=== PATIENT | female | born 1955 | race Caucasian/White ===

== ENCOUNTER → 2017-04-06 | Outpatient (CLI) | payer BC ==
[2017-04-06 09:04] LABS: ALT 34 U/L (9-52); AST 22 U/L (14-36); Alkaline Phosphatase 62 U/L (38-126); Anion Gap 10 mmol/L; Blood Urea Nitrogen 20 mg/dL (7-17); Calcium 9.1 mg/dL (8.4-10.2); Carbon Dioxide 27 mmol/L (22-30); Chloride 106 mmol/L (98-107); Cholesterol 161 mg/dL (<200); Glucose 88 mg/dL (74-99); HDL Cholesterol 51 mg/dL (40-60); Non-African American GFR(MDRD) >60 (>60 ml/min/1.73 sqM); Potassium 3.8 mmol/L (3.5-5.1); Sodium 143 mmol/L (137-145); Total Bilirubin 0.6 mg/dL (0.2-1.3); Total Protein 6.8 g/dL (6.3-8.2); Triglycerides 154 mg/dL (<150)
== END | disposition home or self-care (01) ==
LOC: LABWHC1 07:07
PROVIDERS: ATTEND Internal Medicine Clinical Cardiac Electrophysiology
DX: E78.5 Hyperlipidemia, unspecified (principal)
CPT/HCPCS: 36415; 80053; 80061

== ENCOUNTER → 2017-09-03 | Outpatient (CLI) | payer BC ==
--- NOTE | 2017-09-03 09:54 | WWHP ---
[facility] - HISTORY AND PHYSICAL DATE OF SERVICE: 09/03/2017 CHIEF COMPLAINT: The patient is here for her routine gynecologic exam and mammogram. HPI: This is a 61-year-old G2, P2, with an LMP of 2008. It has been about 4-1/2 years since her last pelvic exam and mammogram. She states she has occasional hot flashes, which are not very bothersome. She is without gynecologic complaints and denies any postmenopausal bleeding. PAST MEDICAL HISTORY: Elevated cholesterol and anxiety. MEDICATIONS: 1. Zocor 20 mg daily. 2. Zoloft 150 mg q.h.s. 3. Aspirin 81 mg daily. 4. Calcium with vitamin D3, 600 mg b.i.d. ALLERGIES: Allergies to PENICILLIN, which caused a rash. PAST SURGICAL HISTORY: Adenoidectomy as a child, left arthroscopic knee surgery and tubal ligation in the past, colonoscopy x2 and the most recent one was in 2013. PAST OB HISTORY: Two vaginal deliveries. PAST BUILDING CUSTODIAL SUPERVISOR HISTORY: She has no history of STDs. SOCIAL HISTORY: She denies tobacco and drug use and has about one alcohol containing drink per year. She has been since 1974, but is not sexually active. She states her is an alcoholic. 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 FAMILY HISTORY: Sister had ovarian cancer in her 70s. Another sister had tonsil cancer. She had an aunt and uncle who had colon cancer and a niece who had breast cancer. Her father had type 1 diabetes. Sister had type 2 diabetes and a nephew has type 1 diabetes. REVIEW OF SYSTEMS: She believes she has gained about 8 pounds over the last year. She denies respiratory, cardiac or GI problems. PHYSICAL EXAM: Blood pressure 130/77, height 5 feet 3 inches, weight 168 pounds, BMI 30, temperature 98.2, pulse 85. This is a well-developed, well-nourished, white female, who is alert and oriented x3, in no acute distress. HEENT is within normal limits. NECK: Supple without mass or thyromegaly. CHEST AND LUNGS: Clear to auscultation. HEART: Regular rate and rhythm. Breasts are without mass or discharge. There is a very small central nipple inversion. The patient states she has not noticed any changes. Axillary exam is negative for adenopathy. BACK: Negative for CVA tenderness. ABDOMEN: Soft, nontender, without palpable masses. PELVIC EXAM: External genitalia reveals mild atrophy without lesions. Cervix and vagina reveals mild atrophy without lesions. There is no significant prolapse noted. The uterus is posterior, nongravid size and nontender. There are no palpable adnexal masses or tenderness. Rectovaginal exam is negative for mass or tenderness and is negative for occult blood. EXTREMITIES: Nontender. IMPRESSION: A 61-year-old menopausal female with normal gynecologic exam. PLAN: 1. Pap smear was performed. 2. Self breast examination was discussed. 3. Mammogram will be done today. 4. Osteoporosis prevention was discussed. She will also be doing a bone density test today. 5. She will return in 1 year. MMODL / IJN: [id number] /
--- NOTE | 2017-09-03 16:43 | BD ---
EXAMINATION TYPE: MG DEXA axial skeleton. DATE OF EXAM: 09/03/2017 COMPARISON: NONE CLINICAL HISTORY: 61-year-old female postmenopausal without HRT Height: 63 Weight: 166.2 FRAX RISK QUESTIONS: Alcohol (3 or more units per day): no Family History (Parent hip fracture): no Glucocorticoids (More than 3mos): no (Ex: prednisone, prednisolone, methylprednisolone, dexamethasone, and hydrocortisone). History of Fracture in Adulthood: no Secondary Osteoporosis: 1. Type 1 Diabetes: no 2. Hyperthyroidism: no 3. Menopause before 45: no 4. Malnutrition: no 5. Chronic liver disease: no Rheumatoid Arthritis: no Current Tobacco Use: no RISK FACTORS HISTORY OF: Hip Fracture (Right/Left): no Spine Fracture: no History of Wrist Fracture: no Surgery to Spine/Hip(right/left)/Wrist (right/left): no Family History of Osteoporosis: yes Active: yes Diet low in dairy products/other sources of calcium: no Postmenopausal woman: age 53 Lost more than 2 inches in height since high school: no Frequent falls: no Poor Health: no Hyperparathyroidism: no Adrenal Insufficiency: no MEDICATIONS: Zocor , zoloft Additional History: EXAM MEASUREMENTS: Bone mineral densitometry was performed using the [employer] System. Bone mineral density as measured about the Lumbar spine is: ----- L1-L4(G/cm2): 1.497 T Score Values are as follows: ----- L2: 0.7 ----- L3: 3.1 ----- L4: 4.5 ----- L1-L4: 2.6 Bone mineral density has: increased 1.3 % since Bone mineral density about the R hip (g/cm2): 1.004 Bone mineral density about the L hip (g/cm2): 1.002 T Score values are as follows: -----R Neck: -0.2 -----L Neck: -0.3 -----R Total: 0.0 -----L Total: 0.5 Bone mineral density has: decreased -0.8 % since study of01.19.2015 IMPRESSION: Normal (Values between +1 and -1 indicate normal bone mass). Consider repeating this study in 5 year s or sooner if there is some new clinical indication. NOTE: T-SCORE=SD OF THE YOUNG ADULT MEAN.
--- NOTE | 2017-09-04 10:53 | MM ---
Reason for exam: screening (asymptomatic). Last mammogram was performed 2 years ago. History: Patient is postmenopausal. Physical Findings: A clinical breast exam by your physician is recommended on an annual basis and results should be correlated with mammographic findings. MG Screening Mammo w CAD Bilateral CC and MLO view(s) were taken. Prior study comparison: August 23, 2015, bilateral MG screening mammo w CAD. June 25, 2014, bilateral MG screening mammo w CAD. No significant changes when compared with prior studies. ASSESSMENT: Benign, BI-RAD 2 RECOMMENDATION: Routine screening mammogram of both breasts in 1 year.
== END | disposition home or self-care (01) ==
LOC: WWCWWP 08:30
PROVIDERS: ATTEND Obstetrics & Gynecology
DX: Z12.31 Encounter for screening mammogram for malignant neoplasm of breast (principal); N95.9 Unspecified menopausal and perimenopausal disorder
CPT/HCPCS: 77080; G0202

== ENCOUNTER 2018-01-04 15:49 | Observation (INO) | payer BC ==
--- NOTE | 2018-01-04 16:17 | ED ---
Chest Pain HPI <Juancho West - Last Filed: 01/04/18 17:10> - General Source: patient Mode of arrival: EMS Limitations: no limitations <Thania Can - Last Filed: 01/04/18 17:25> - General Chief Complaint: Chest Pain Stated Complaint: Rapid heart rate Time Seen by Provider: 01/04/18 16:01 - History of Present Illness Initial Comments: 62-year-old female patient with a past medical history significant for hyperlipidemia and anxiety presents to the emergency department today for complaints of racing heart and chest tightness. Patient states that she had 2 separate episodes today where she became short of breath, felt tightness in her substernal chest region, and had palpitations. Patient denies any sweats or nausea with this. Patient states that she has had racing heart in the past and was diagnosed with irregular heartbeat. States that she does not currently take any medications for this and never had any intervention. Patient states that she did recently take a 3-4 [address] trip to [place] and hospital for special care. She denies any calf pain or tenderness. She denies any lower extremity swelling. Patient is also reporting dark urine but denies any hematuria, dysuria, urinary frequency, or urinary urgency. Denies any abdominal pain, nausea, or vomiting. Patient denies any recent rash, fever, chills, diarrhea, constipation, back pain, numbness, tingling, dizziness, weakness, hematuria, dysuria, urinary urgency, urinary frequency, headache, visual changes, or any other complaints. (Thania Can) - Related Data Home Medications Medication Instructions Recorded Confirmed Aspirin 81 mg PO HS 01/04/18 01/04/18 Calcium Carbonate/Vitamin D3 1 tab PO DAILY 01/04/18 01/04/18 [Calcium 600-Vit D3 400 Caplet] Cyanocobalamin (Vitamin B-12) 1,000 mcg PO DAILY 01/04/18 01/04/18 [Vitamin B-12] Glucosamine/Chondr Francisco A Sod [Osteo 1 tab PO BID 01/04/18 01/04/18 Bi-Flex Caplet] Sertraline [Zoloft] 150 mg PO HS 01/04/18 01/04/18 Simvastatin [Zocor] 20 mg PO HS 01/04/18 01/04/18 Allergies Allergy/AdvReac Type Severity Reaction Status Date / Time Penicillins Allergy Rash/Hives Verified 01/04/18 16:40 Review of Systems ROS Other: All systems not noted in ROS Statement are negative. <Juancho West - Last Filed: 01/04/18 17:10> ROS Other: All systems not noted in ROS Statement are negative. <Thania Can - Last Filed: 01/04/18 17:25> ROS Statement: Those systems with pertinent positive or pertinent negative responses have been documented in the HPI. EKG Findings - EKG Comments: EKG Findings:: EKG obtained at 1601 shows sinus rhythm with occasional PVCs. Ventricular rate is 85, DE interval 178, QR cheondoism 92, QT 378, QTC 449. No evidence of ST elevation or depression. <Thania Can - Last Filed: 01/04/18 17:25> Past Medical History Past Medical History: Hyperlipidemia History of Any Multi-Drug Resistant Organisms: None Reported Past Surgical History: Adenoidectomy Past Psychological History: Anxiety Smoking Status: Former smoker Past Alcohol Use History: None Reported Past Drug Use History: None Reported <Thania Can - Last Filed: 01/04/18 17:25> General Exam Limitations: no limitations General appearance: alert, in no apparent distress, other (This is a well- developed, well-nourished adult female patient in no acute distress. Vital signs upon presentation are temperature 98.0F, pulse 92, respirations 16, blood pressure 147/77, pulse ox 98% on room air.) Eye exam: Present: normal appearance, PERRL, EOMI. Absent: scleral icterus, conjunctival injection, periorbital swelling ENT exam: Present: normal exam, normal oropharynx, mucous membranes moist Respiratory exam: Present: normal lung sounds bilaterally. Absent: respiratory distress, wheezes, rales, rhonchi, stridor, chest wall tenderness Cardiovascular Exam: Present: regular rate, normal rhythm, normal heart sounds. Absent: systolic murmur, diastolic murmur, rubs, gallop, clicks GI/Abdominal exam: Present: soft, normal bowel sounds. Absent: distended, tenderness, guarding, rebound, rigid Neurological exam: Present: alert, oriented X3, CN II-XII intact Psychiatric exam: Present: normal affect, normal mood Skin exam: Present: warm, dry, intact, normal color. Absent: rash <Thania Can - Last Filed: 01/04/18 17:25> Course <Juancho West - Last Filed: 01/04/18 17:10> <Thania Can - Last Filed: 01/04/18 17:25> Vital Signs 01/04/18 01/04/18 01/04/18 15:55 16:12 17:04 Temperature 98.0 F Pulse Rate 92 75 Pulse Rate [ 89 Career Services Representative ] Respiratory 16 18 Rate Blood Pressure 147/77 139/75 O2 Sat by Pulse 98 98 Oximetry - Reevaluation(s) Reevaluation #1: 01/04/18 17:10 I did proceed a [id number] evaluation patient did discuss findings with patient patient will be admitted for evaluation of atypical chest pain. Dr. Abraham was notified. I do agree with the assessment and plan. (Juancho West) Chest Pain MDM <Juancho West - Last Filed: 01/04/18 17:10> <Thania Can - Last Filed: 01/04/18 17:25> - [facility]: Two-view x-ray of the chest shows no focal airspace opacity, pleural effusion, or pneumothorax. There are overlying cardiac leads. Patient is rotated. The cardiac silhouette size is within normal limits. The osseous structures are intact. Impression by Dr. Leo shows no acute cardiopulmonary process. MDM: 62-year-old female patient presented to the emergency department today for complaints of chest tightness and palpitations. Physical examination is unremarkable. Currently heart sounds are normal. EKG shows normal sinus rhythm with occasional PVCs. Labs reviewed and were unremarkable. Did add TSH. Did discuss the case with Dr. Abraham. He accepts admission. We will start patient on heparin. We'll continue cardiac monitoring. I discussed findings and plan with the patient and her family. They verbalize understanding and agree with the plan. (Thania Can) Disposition <Juancho West - Last Filed: 01/04/18 17:10> Decision to Admit Reason: Admit from EC Decision Date: 01/04/18 Decision Time: 17:22 <Thania Can - Last Filed: 01/04/18 17:25> Clinical Impression: Atypical chest pain, Palpitations Disposition: ADMITTED IP TO THIS [facility] Condition: Serious Referrals: Mayank Walden MD [Primary Care Provider] - 1-2 days
[2018-01-04 16:25] LABS: Basophils % (A) 0 %; Eosinophils # (A) 0.1 k/uL (0-0.7); Eosinophils % (A) 2 %; HCT 40.6 % (34.0-46.0); HGB 14.4 gm/dL (11.4-16.0); Lymphocytes % (A) 30 %; MCH 30.8 pg (25.0-35.0); MCHC 35.6 g/dL (31.0-37.0); MCV 86.7 fL (80.0-100.0); Mean Platelet Volume 6.8; Monocytes # (A) 0.3 k/uL (0-1.0); Monocytes % (A) 5 %; Neutrophils # (A) 4.2 k/uL (1.3-7.7); Neutrophils % (A) 61 %; Platelet Count 266 k/uL (150-450); RBC 4.68 m/uL (3.80-5.40); WBC 6.9 k/uL (3.8-10.6)
[2018-01-04 16:32] LABS: Appearance,Urine Clear (Clear); Bilirubin,Urine Negative (Negative); Blood,Urine Negative (Negative); Color,Urine Yellow; Glucose,Urine (UA) Negative (Negative); Ketones,Urine Trace (Negative); Leukocyte Esterase,Urine Negative (Negative); Nitrite,Urine Negative (Negative); PH, Urine 6.5 (5.0-8.0); Protein,Urine Negative (Negative); Specific Gravity,Urine 1.007 (1.001-1.035); Urobilinogen,Urine <2.0 mg/dL (<2.0)
[2018-01-04 16:35] LABS: ALT 30 U/L (9-52); AST 21 U/L (14-36); Albumin 4.1 g/dL (3.5-5.0); Alkaline Phosphatase 76 U/L (38-126); Anion Gap 13 mmol/L; Blood Urea Nitrogen 15 mg/dL (7-17); Calcium 9.7 mg/dL (8.4-10.2); Carbon Dioxide 23 mmol/L (22-30); Chloride 108 mmol/L (98-107); D-Dimer 0.3 mg/L FEU (<0.60); Glucose 99 mg/dL (74-99); Magnesium 1.9 mg/dL (1.6-2.3); Potassium 3.9 mmol/L (3.5-5.1); Sodium 144 mmol/L (137-145); Total Bilirubin 0.4 mg/dL (0.2-1.3); Total Protein 7.1 g/dL (6.3-8.2)
[2018-01-04 16:39] LABS: Partial Thromboplastin Time 23.2 sec (22.0-30.0); Prothrombin Time 9.8 sec (9.0-12.0)
[2018-01-04 16:47] LABS: Creatine Kinase 81 U/L (30-135)
--- NOTE | 2018-01-04 16:47 | XR ---
EXAMINATION TYPE: XR chest 2V DATE OF EXAM: 01/04/2018 COMPARISON: NONE HISTORY: Chest pain TECHNIQUE: Frontal and lateral views of the chest are obtained. FINDINGS: There is no focal air space opacity, pleural effusion, or pneumothorax seen. There are ov erlying cardiac leads. Patient is rotated. The cardiac silhouette size is within normal limits. The osseous structures are intact. IMPRESSION: No acute cardiopulmonary process.
[2018-01-04 17:00] LABS: Troponin I <0.012 ng/mL (0.000-0.034)
[2018-01-04] MEDS ORDERED: NITROGLYCERIN SL TABS 0.4 MG TAB SUBLINGUAL PRN (17:18)
[2018-01-04] MEDS ORDERED: HEPARIN SODIUM,PORCINE 5,000 UNIT/ML 1 ML VIAL IV PRN (17:21)
[2018-01-04] MEDS ORDERED: HEPARIN SODIUM,PORCINE 5,000 UNIT/ML 1 ML VIAL IV ONE (17:21)
[2018-01-04] MEDS ORDERED: HEPARIN SOD,PORK IN 0.45% NACL 25,000 UNIT in 0.45% NACL 1 500ML.BAG IV SCH (17:30)
[2018-01-04] MEDS ORDERED: SODIUM CHLORIDE 0.9% 1,000 ML IV SCH (18:15)
[2018-01-04] MEDS ORDERED: ACETAMINOPHEN TAB 325 MG TAB PO PRN (21:18)
[2018-01-04 21:29] VITALS: BMI 29.7
[2018-01-04] MEDS ORDERED: SERTRALINE 100 MG TAB PO SCH (23:30)
[2018-01-04] MEDS ORDERED: ATORVASTATIN 20 MG TAB PO SCH (23:30)
[2018-01-05 00:07] LABS: Creatine Kinase 72 U/L (30-135)
[2018-01-05 00:19] LABS: Creatine Kinase MB 1.1 ng/mL (0.0-2.4); Troponin I <0.012 ng/mL (0.000-0.034)
[2018-01-05 06:04] LABS: Basophils % (A) 1 %; Eosinophils # (A) 0.3 k/uL (0-0.7); Eosinophils % (A) 4 %; HCT 38.3 % (34.0-46.0); HGB 13.3 gm/dL (11.4-16.0); Lymphocytes % (A) 41 %; MCH 30.1 pg (25.0-35.0); MCHC 34.6 g/dL (31.0-37.0); MCV 86.9 fL (80.0-100.0); Monocytes # (A) 0.4 k/uL (0-1.0); Monocytes % (A) 5 %; Neutrophils # (A) 3.4 k/uL (1.3-7.7); Neutrophils % (A) 46 %; Platelet Count 243 k/uL (150-450); RBC 4.41 m/uL (3.80-5.40); RDW 13.2 % (11.5-15.5); WBC 7.3 k/uL (3.8-10.6)
[2018-01-05 06:32] LABS: Creatine Kinase 68 U/L (30-135)
[2018-01-05 06:44] LABS: Troponin I <0.012 ng/mL (0.000-0.034)
[2018-01-05 06:47] LABS: Cholesterol 152 mg/dL (<200); HDL Cholesterol 51 mg/dL (40-60); LDL Cholesterol,Calculated 79 mg/dL (0-99); Triglycerides 110 mg/dL (<150)
[2018-01-05] MEDS ORDERED: ASPIRIN 325 MG TAB PO SCH (09:00)
[2018-01-05] MEDS ORDERED: CYANOCOBALAMIN 500 MCG TAB PO SCH (09:00)
[2018-01-05] MEDS ORDERED: CALCIUM CARB-VIT D 500MG-200UN 1 EACH TAB PO SCH (09:00)
[2018-01-05 12:27] VITALS: BP 154/71; PULSE 75; RESP 16; TEMP 97.7
--- NOTE | 2018-01-05 13:07 | CONS ---
CONSULTATION CHIEF COMPLAINT: Chest pain. HISTORY OF PRESENT ILLNESS: Lázaro is 62-year-old lady with history of palpitations for which she used to be on propranolol in the past and dyslipidemia, presented to hospital complaining of recurrent episodes of palpitations and a vague sense of unease in her chest when this happens. Due to this, she is admitted to hospital with a diagnosis of unstable angina. Since being admitted home, she is feeling well and is free of symptoms. She denies syncope, focal neurological deficits, paroxysmal nocturnal dyspnea or orthopnea. There is no history of leg edema. The EKG does not reveal ischemic changes and cardiac enzymes have been negative. PAST MEDICAL HISTORY: Significant for dyslipidemia. CURRENT MEDICATIONS: Include Zoloft, Zocor, vitamin B12, and aspirin. ALLERGIES: ALLERGIC TO PENICILLIN. FAMILY HISTORY: Significant for premature coronary artery disease. SOCIAL HISTORY: Negative for smoking, ETOH abuse or drug abuse. REVIEW OF SYSTEMS: HEENT is unremarkable. Cardiac as described above. Respiratory negative. GI negative. Genitourinary negative. Allergy none. Skin negative. Musculoskeletal significant for arthritis. Psychosocial negative. Endocrine negative. Derm negative. Constitutional negative. Oncological negative. Rest of the system review is not relevant. EXAM: Comfortable at rest. Vital signs are stable. There is no jugular venous distention. Carotid upstroke is normal. There is no bruit. Chest exam reveals good air entry bilaterally. Heart exam reveals first and second heart sounds. No gallop. No murmur. No rub. Abdomen is soft, nontender. Exam of extremities did not reveal edema. Peripheral pulses are felt. EKG does not reveal ischemic changes. Cardiac enzymes are negative. D-dimer is 0.3. Hemoglobin is 13.3. ASSESSMENT: 1. Chest pain, atypical and probably noncardiac. 2. Palpitations. PLAN: Patient is doing better this morning. Myocardial infarction is ruled out. I will ambulate her. If she is feeling well, she can be discharged home on Toprol-XL 25 mg daily and she will be followed up in the outpatient setting. She sees Dr. Pierre in my office. We can schedule an outpatient stress test and echocardiogram on her. MMODL / IJN: [id number] /
[2018-01-05] MEDS ORDERED: METOPROLOL SUCCINATE (ER) 25 MG TAB.ER.24H PO STA (15:21)
--- NOTE | 2018-01-05 18:55 | HP ---
HISTORY AND PHYSICAL DATE OF ADMISSION: 01/04/18. PRESENT COMPLAINT: Chest pressure, heart racing. HISTORY OF PRESENTING COMPLAINT: A very pleasant 62-year-old patient of Dr. Walden. Also follows with poly packer and heat sealer, Dr. Pierre. Chronic stable medical conditions include anxiety, depression, and hyperlipidemia. The patient presents with multitude of symptoms to include sensation of bit of pressure across the chest, going to both the arms and feeling numbness and tingling. Some episodes of associated dizziness of variable duration. The patient had slight symptoms on and off for some time she said before. The patient went on to starting Zoloft, symptoms are gone. Symptoms came back very recently in the last few days, but more so in the last 2 days, especially 2 episodes yesterday a bit more protracted, hence, she decided to come in. Otherwise, patient is rather active. Denies any prior cardiac activity. Here on the telemetry she did have brief episode of sinus tach. Denies any episodes of passing out or near syncope. REVIEW OF SYSTEM: CONSTITUTIONAL: None. HEENT: None. RESPIRATORY: None. CARDIOVASCULAR: As above. GASTROINTESTINAL: Denied. GENITOURINARY: None. MUSCULOSKELETAL: None. DERMATOLOGIC, HEMATOLOGIC, LYMPHATIC: None. PSYCHIATRY: Bit of anxiety. NEUROLOGICAL: None. PAST HISTORY: Past history of hyperlipidemia, anxiety, depression. PAST SURGICAL HISTORY: Adenoidectomy, tubal ligation. 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 No alcohol. FAMILY HISTORY: Hypertension. HOME MEDICATIONS: 1. Zocor 20 mg q.h.s. 2. Zoloft 150 mg q.h.s. 3. Osteo Bi-Flex 1 tab p.o. b.i.d. 4. Vitamin B12 1000 mcg p.o. daily. 5. Calcium with vitamin D 1 tablet p.o. daily. 6. Aspirin 81 mg q.h.s. ALLERGIES: PENICILLIN. PHYSICAL EXAMINATION: Temperature 97.7, pulse 75, respirations 18, blood pressure 154/71, pulse ox 95% on room air. GENERAL APPEARANCE: Average built, sitting up, comfortable. EYES: Pupils equal. Conjunctivae normal. HEENT: External appearance of nose and ears normal. Oral cavity normal. NECK: JVD not raised. Mass not palpable. RESPIRATORY: Effort normal, lungs are clear. CARDIOVASCULAR: First and second sounds normal. No edema. ABDOMEN: Soft, nontender. Liver and spleen not palpable. LYMPHATIC: No lymph node palpable in neck or axillae. PSYCHIATRY: Alert and oriented x3. Mood and affect normal. NEUROLOGICAL: Pupils equal. Cranial nerves grossly intact. Power and sensation grossly intact. INVESTIGATIONS: White count 7.3, hemoglobin 13.3, potassium 3.9, troponin x3 negative. TSH normal. ASSESSMENT: 1. The patient presented with episodes of some chest pressure radiating to the arm, some heart racing, feeling flushed, dizzy, could be angina equivalent. Admitted further workup. Troponins have been negative. 2. Anxiety/depression, not otherwise specified. 3. Hyperlipidemia. PLAN: The patient is put on telemetry. Cardiology was consulted. Home medications were resumed. Care was discussed with the patient. ROGELIO / BRYON: [id number] /
[2018-01-05] MEDS ORDERED: ATORVASTATIN 10 MG TAB PO SCH (21:00)
[2018-01-05] MEDS ORDERED: SERTRALINE 50 MG TAB PO SCH (21:00)
--- NOTE | 2018-01-06 05:52 | DS ---
DISCHARGE SUMMARY DATE OF ADMISSION: 01/04/2018 DATE OF DISCHARGE: 01/05/2018 FINAL DIAGNOSES: 1. Paroxysmal sinus tachycardia. 2. Anxiety, depression, not otherwise specified. 3. Hyperlipidemia. HOSPITAL COURSE: This patient presented with episodes of fluttering in the chest. Seen by Dr. Surekha Lee. Okayed the patient to be discharged. He will do an outpatient stress test. The patient is otherwise feeling well. The patient's troponins were negative. TSH was normal. LDL was 79. DISCHARGE MEDICATIONS: 1. Aspirin 81 mg q.h.s. 2. Calcium 600, vitamin D3 one tablet p.o. daily. 3. Vitamin B-12, 1000 mcg p.o. daily. 4. Osteo Bi-Flex 1 tablet p.o. b.i.d. 5. Zoloft 150 mg q.h.s. 6. Zocor 20 mg q.h.s. 7. Toprol XL 25 mg a day, new medication. Follow up with Dr. Pierre in [address] Walden in 3 days. MMODL / IJN: [id number] /
== END 2018-01-05 17:11 | disposition home or self-care (01) ==
LOC: EC 15:49 → 3SUR 17:11
PROVIDERS: ADMIT Hospitalist; ATTEND Hospitalist
DX: I47.1 Supraventricular tachycardia (principal); R07.2 Precordial pain; R20.0 Anesthesia of skin; R20.2 Paresthesia of skin; E78.5 Hyperlipidemia, unspecified; F41.9 Anxiety disorder, unspecified; F32.9 Major depressive disorder, single episode, unspecified; Z79.82 Long term (current) use of aspirin; Z79.899 Other long term (current) drug therapy; Z88.0 Allergy status to penicillin; Z87.891 Personal history of nicotine dependence; Z82.49 Family history of ischemic heart disease and other diseases of the circulatory system
CPT/HCPCS: 99285; 96376; 96365; 96366 ×2; 36415; 93005; 85379; 80061; 80053; 84443; 82550 ×2; 82553 ×2; 83735; 84484 ×2; 85025 ×2; 85610; 85730 ×2; 81003; 71046; G0378 ×2; J1644 ×2

== ENCOUNTER → 2018-06-21 | Outpatient (CLI) | payer BC ==
[2018-06-21 08:33] LABS: Basophils % (A) 1 %; Eosinophils # (A) 0.3 k/uL (0-0.7); Eosinophils % (A) 5 %; HCT 44.2 % (34.0-46.0); HGB 14.3 gm/dL (11.4-16.0); Lymphocytes # (A) 1.9 k/uL (1.0-4.8); Lymphocytes % (A) 36 %; MCH 29.7 pg (25.0-35.0); MCHC 32.2 g/dL (31.0-37.0); MCV 92.2 fL (80.0-100.0); Mean Platelet Volume 6.8; Monocytes # (A) 0.3 k/uL (0-1.0); Monocytes % (A) 6 %; Neutrophils # (A) 2.7 k/uL (1.3-7.7); Neutrophils % (A) 51 %; Platelet Count 251 k/uL (150-450); RDW 12.9 % (11.5-15.5); WBC 5.3 k/uL (3.8-10.6)
[2018-06-21 08:39] LABS: ALT 30 U/L (9-52); AST 24 U/L (14-36); Albumin 4.2 g/dL (3.5-5.0); Alkaline Phosphatase 65 U/L (38-126); Anion Gap 7 mmol/L; Blood Urea Nitrogen 20 mg/dL (7-17); Calcium 9.6 mg/dL (8.4-10.2); Carbon Dioxide 29 mmol/L (22-30); Chloride 106 mmol/L (98-107); Cholesterol 172 mg/dL (<200); Creatine Kinase 100 U/L (30-135); Glucose 87 mg/dL (74-99); HDL Cholesterol 52 mg/dL (40-60); LDL Cholesterol,Calculated 90 mg/dL (0-99); Potassium 4.1 mmol/L (3.5-5.1); Sodium 142 mmol/L (137-145); Total Bilirubin 0.6 mg/dL (0.2-1.3); Total Protein 7.2 g/dL (6.3-8.2); Triglycerides 149 mg/dL (<150)
[2018-06-21 18:36] LABS: Hemoglobin A1C 5.7 % (4.0-6.0)
== END | disposition home or self-care (01) ==
LOC: LABWHC1 08:01
PROVIDERS: ATTEND Family Medicine
DX: Z00.00 Encounter for general adult medical examination without abnormal findings (principal); E78.5 Hyperlipidemia, unspecified; Z11.59 Encounter for screening for other viral diseases
CPT/HCPCS: 36415; 80053; 80061; 82550; 83036; 85025; 86803

== ENCOUNTER → 2019-04-23 | Outpatient (CLI) | payer BC ==
--- NOTE | 2019-04-23 09:17 | US ---
EXAMINATION TYPE: US transvaginal DATE OF EXAM: 04/23/2019 COMPARISON: NONE CLINICAL HISTORY: R10.2 pelvic pain. 6 months of general pelvic pain TECHNIQUE: TV. Transvaginal sonography Date of LMP: 12+yrs ago EXAM MEASUREMENTS: Uterus: 5.8 x 4.6 x 2.5 cm Endometrial Stripe: 0.3 cm Right Ovary: 1.7 x 1.6 x 0.8 cm Left Ovary: not seen 1. Uterus: Anteverted slightly heterogeneous anterior myometrium with no definite abnormality seen 2. Endometrium: wnl 3. Right Ovary: wnl 4. Left Ovary: not seen due to atrophy and bowel gas 5. Bilateral Adnexa: wnl 6. Posterior cul-de-sac: wnl IMPRESSION: 1. Slight heterogeneity of the uterine myometrium could relate to adenomyosis. Pelvic MRI could furth er evaluate this finding. 2. Nonvisualization of the left ovary.
--- NOTE | 2019-04-24 10:01 | MM ---
Reason for exam: screening (asymptomatic). Last mammogram was performed 1 year and 8 months ago. History: Patient is postmenopausal. Physical Findings: A clinical breast exam by your physician is recommended on an annual basis and results should be correlated with mammographic findings. MG Screening Mammo w CAD Bilateral CC and MLO view(s) were taken. Prior study comparison: September 03, 2017, bilateral MG screening mammo w CAD. August 23, 2015, bilateral MG screening mammo w CAD. There are scattered fibroglandular densities. There is no discrete abnormality. ASSESSMENT: Negative, BI-RAD 1 RECOMMENDATION: Routine screening mammogram of both breasts in 1 year.
== END | disposition home or self-care (01) ==
LOC: RADUSWWP 08:04
PROVIDERS: ATTEND Nurse Practitioner Adult Health
DX: Z12.31 Encounter for screening mammogram for malignant neoplasm of breast (principal); N85.2 Hypertrophy of uterus
CPT/HCPCS: 36415; 76830; 77067; 86304

== ENCOUNTER → 2019-05-14 | Outpatient (CLI) | payer BC ==
--- NOTE | 2019-05-15 16:58 | MR ---
MR pelvis with and without contrast HISTORY: Endometrial hyperplasia, pelvic discomfort Multiplanar multisequence and postcontrast images obtained through the pelvis following 7.[address] IV. Correlation pelvic ultrasound 04/23/2019 Nabothian cyst is noted in the cervix. Ovaries are atrophic. No evident myometrial mass. There is no pelvic adenopathy or free fluid. Transitional zone is normal. No evident adenomyosis. No abnormal enh ancement on contrast administration. IMPRESSION: Normal pelvic MRI.
== END | disposition home or self-care (01) ==
LOC: RADMRIMAIN 08:39
PROVIDERS: ATTEND Family Medicine
DX: N85.00 Endometrial hyperplasia, unspecified (principal)
CPT/HCPCS: 72197; A9585

== ENCOUNTER → 2020-09-22 | Outpatient (CLI) | payer BC ==
--- NOTE | 2020-09-26 11:08 | MM ---
Reason for exam: screening (asymptomatic). Last mammogram was performed 1 year and 5 months ago. History: Patient is postmenopausal. Physical Findings: A clinical breast exam by your physician is recommended on an annual basis and results should be correlated with mammographic findings. MG Screening Mammo w CAD Bilateral CC and MLO view(s) were taken. Prior study comparison: April 23, 2019, bilateral MG screening mammo w CAD. September 03, 2017, bilateral MG screening mammo w CAD. There are scattered fibroglandular densities. No significant changes when compared with prior studies. ASSESSMENT: Benign, BI-RAD 2 RECOMMENDATION: Routine screening mammogram of both breasts in 1 year.
== END | disposition home or self-care (01) ==
LOC: RADMAMWWP 09:26
PROVIDERS: ATTEND Family Medicine
DX: Z12.31 Encounter for screening mammogram for malignant neoplasm of breast (principal)
CPT/HCPCS: 77067

== ENCOUNTER → 2022-01-23 | Outpatient (CLI) | payer BC ==
--- NOTE | 2022-01-25 10:48 | MM ---
Reason for exam: screening (asymptomatic). Last mammogram was performed 1 year and 4 months ago. History: Patient is postmenopausal. Physical Findings: A clinical breast exam by your physician is recommended on an annual basis and results should be correlated with mammographic findings. MG 3D Screening Mammo W/Cad Bilateral CC and MLO view(s) were taken. Prior study comparison: September 22, 2020, bilateral MG screening mammo w CAD. April 23, 2019, bilateral MG screening mammo w CAD. No significant changes when compared with prior studies. ASSESSMENT: Benign, BI-RAD 2 RECOMMENDATION: Routine screening mammogram of both breasts in 1 year.
== END | disposition home or self-care (01) ==
LOC: RADMAMWWP 16:43
PROVIDERS: ATTEND Family Medicine
DX: Z12.31 Encounter for screening mammogram for malignant neoplasm of breast (principal); Z78.0 Asymptomatic menopausal state
CPT/HCPCS: 77063; 77067

== ENCOUNTER → 2022-04-25 | Outpatient (CLI) | payer BC ==
[2022-04-25 08:55] VITALS: BP 125/73; PULSE 72; RESP 17; TEMP 98.3
--- NOTE | 2022-04-25 14:54 | P.HPOB ---
History of Present Illness H&P Date: 04/25/22 Chief Complaint: The patient is here for her routine gynecologic exam. This is a 66-year-old with an LMP of 2008. The patient is here to reestablish with this office. She was last seen here in 2017. She has not had a pelvic exam since then. She has noticed a bulge at the vaginal opening for just under 1 year. She states that it is and eggs size bulge and is noticed more when she is doing heavy lifting. She does not notice it in the sitting or laying down position. She denies any pain associated with the bulge. She wonders if it is her uterus. She is otherwise without gynecologic complaints and denies any postmenopausal bleeding. Review of Systems The patient's weight has been stable over the last year. She denies respiratory, cardiac, or G.I. problems. Past Medical History Past Medical History: Hyperlipidemia Additional Past Medical History / Comment(s): Intermittent tachycardia. 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 History of Any Multi-Drug Resistant Organisms: None Reported Past Surgical History: Adenoidectomy, Orthopedic Surgery, Tubal Ligation Additional Past Surgical History / Comment(s): Arthroscopic knee surgery. Colonoscopy 2013 Past Anesthesia/Blood Transfusion Reactions: No Reported Reaction Past Psychological History: Anxiety Additional Psychological History / Comment(s): She denies any current depression. 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 - Past Family History Father Family Medical History: Diabetes Mellitus, Hypertension Additional Family Medical History / Comment(s): Paternal aunt and uncle had colon cancer. Mother Family Medical History: Coronary Artery Disease (CAD), Hypertension, Pulmonary Embolus Sister(s) Family Medical History: Cancer Additional Family Medical History / Comment(s): of ovarian cancer in her 70s. Medications and Allergies Home Medications Medication Instructions Recorded Confirmed Type Aspirin 81 mg PO HS 01/04/18 04/25/22 History Calcium Carbonate/Vitamin D3 1 tab PO DAILY 01/04/18 04/25/22 History [Calcium 600-Vit D3 400 Caplet] Cyanocobalamin (Vitamin B-12) 1,000 mcg PO DAILY 01/04/18 04/25/22 History [Vitamin B-12] Sertraline [Zoloft] 150 mg PO HS 01/04/18 04/25/22 History Simvastatin [Zocor] 20 mg PO HS 01/04/18 04/25/22 History Metoprolol Succinate (ER) [Toprol 25 mg PO DAILY #30 tab 01/05/18 04/25/22 Rx Xl] Folic Acid 1 cap PO DAILY 04/25/22 04/25/22 History Turmeric Root Extract [Turmeric] 1,000 mg PO DAILY 04/25/22 04/25/22 History Vitamin A 1 cap PO DAILY 04/25/22 04/25/22 History Allergies Allergy/AdvReac Type Severity Reaction Status Date / Time Penicillins Allergy Rash/Hives Verified 04/25/22 08:49 Exam Vital Signs Temp Pulse Resp BP Pulse Ox 04/25/22 08:52 98.3 F 72 17 125/73 98 Intake and Output 04/24/22 04/25/22 04/25/22 22:59 06:59 14:59 Other: Weight 71.214 kg Height 5 feet 3 inches, weight 157 pounds, BMI 27.8. This is a well-developed well-nourished white female who is alert and oriented times 3 in no acute distress. HEENT: Within normal limits. NECK: Supple without mass or thyromegaly. CHEST AND LUNGS: Clear to auscultation. HEART: Regular rate and rhythm. BREASTS: Are without mass or discharge. There is bilateral central nipple inve rsion noticed more on the right side. The patient states the nipples have been inverted for many years. AXILLARY EXAM: Negative for adenopathy. BACK: Negative for CVA tenderness. ABDOMEN: Soft, nontender, without palpable masses. PELVIC EXAM: Normal external genitalia with mild to moderate atrophy. Cervix and vagina appear normal with mild to moderate atrophy. There is no unusual discharge. There is a grade 2 uterine prolapse with grade 2 cystocele at rest. The cystocele approaches the introitus with hard Valsalva. There is no significant rectocele noted. The uterus is midposition, nongravid size and nontender. There are no palpable adnexal masses or tenderness. RECTAL EXAM: Rectovaginal exam is negative for mass or tenderness and is negative for occult blood. EXTREMITIES: Nontender. IMPRESSION: 1. 66-year-old menopausal female with a grade 2-3 cystocele and grade 2 uterine prolapse. This is mildly symptomatic when doing heavy lifting, and is otherwise minimally symptomatic. 2. Family history of ovarian cancer in her sister. PLAN: 1. Pap smear was performed. She has had negative Pap smears in 2012 and 2016. If this Pap smear is negative, we will plan on discontinuing Pap smears since she has no history of cervical neoplasia. 2. Self breast awareness was discussed with the patient. We have also discussed symptoms associated with inflammatory breast cancer. 3. Her last mammogram on 01/23/2022 was benign. We will plan on repeating mammogram after 1 year. 4. We have had a long discussion regarding pelvic prolapse and have discussed the nature of the cystocele and uterine prolapse. We have discussed various options including conservative management, pessary use, and surgical correction. Since she has noticed the bulge intermittently over the past year and it has been minimally symptomatic, we have decided to proceed with conservative management. She is to avoid heavy repetitive lifting, holding urine longer than necessary, and bearing down. We have discussed negative Valsalva exercises which she can do when she notices a bulge and prior to voiding. The ACOG FAQ handout on pelvic relaxation was given to the patient. 5. Osteoporosis prevention was discussed. I have stressed the importance of adequate calcium, vitamin D and regular exercise. Recommended amounts of calcium and vitamin D were also discussed. Last bone density test on 09/03/2017 was normal. We will plan on repeating it in 2022 at her next annual examination. 6. She has completed her Covid vaccination series and did receive a booster. 7. Because of her sister's history of ovarian cancer, I have recommended yearly pelvic ultrasounds. She did have a pelvic ultrasound on 04/23/2019. A heterogeneous myometrium was noted and MRI of the pelvis was recommended. This was done on 05/14/2019 and was normal. The order slip for a pelvic ultrasound was given to the patient. 8. She was advised to return in one year for her annual well woman exam and as needed.
== END ==
LOC: WWCWWP 08:42
PROVIDERS: ATTEND Obstetrics & Gynecology
DX: Z01.419 Encounter for gynecological examination (general) (routine) without abnormal findings (principal); Z78.0 Asymptomatic menopausal state; N81.4 Uterovaginal prolapse, unspecified; Z80.41 Family history of malignant neoplasm of ovary; E78.5 Hyperlipidemia, unspecified; F41.9 Anxiety disorder, unspecified; F32.A Depression, unspecified; Z88.0 Allergy status to penicillin

== ENCOUNTER → 2023-10-24 | Outpatient (CLI) | payer MEDICARE, BC ==
--- NOTE | 2023-10-24 10:58 | CT ---
EXAMINATION TYPE: CT abdomen pelvis wo con CT DLP: 436.1 mGycm, Automated exposure control for dose reduction was used. DATE OF EXAM: 10/24/2023 9:25 AM COMPARISON: None. CLINICAL INDICATION:Female, 68 years old with history of R10.32 LLQ PAIN; LLQ pain TECHNIQUE: Axial CT of the abdomen and pelvis. Sagittal and coronal reformats were created on a [employer] workstation. Contrast used: mL of , (none if empty) Oral contrast used: without Oral Contrast (none if empty) FINDINGS: Exam is limited without contrast. LOWER CHEST: No significant lung abnormality. Heart is normal in size. There are a moderate amount of coronary arterial calcifications, mostly on the left. Ascending aorta appears ectatic measuring 3.6 cm. Small hiatal hernia. ABDOMEN LIVER: Unremarkable GALLBLADDER AND BILE DUCTS: Unremarkable gallbladder. No biliary ductal dilatation. PANCREAS: No acute finding. Some fat is seen insinuating within the pancreatic body, images 25 and 26 . SPLEEN: Unremarkable. ADRENAL GLANDS: Unremarkable. KIDNEYS AND URETERS: No evidence of renal calculi or contour deformity. No hydronephrosis. Tiny vague hypodense area suggested in the mid left kidney, too small to characterize. Considerations include c yst. PELVIS BLADDER: Unremarkable REPRODUCTIVE: Uterus and adnexal regions appear grossly unremarkable, though not well assessed by CT. Pelvic phleboliths. ABDOMEN & PELVIS STOMACH AND BOWEL: Stomach and small bowel are nondistended, no evidence of obstruction. Thickening versus nondistention of the tissues of the hiatal hernia GE junction and proximal stomach. The append ix appears within normal limits. Fatty infiltration of the ileocecal valve. Moderate to mild stool t hroughout the colon, greatest proximally. There is caliber change at the splenic flexure with the col on distal to this appearing decompressed, this could be physiologic with pathologic narrowing here un able to be excluded. A few sigmoid region diverticula without evidence of diverticulitis. Moderate st ool in the distal sigmoid and rectum. PERITONEUM/RETROPERITONEUM: No evidence of pneumoperitoneum or free fluid. VASCULATURE: Moderate atherosclerotic calcifications are present throughout the abdominal aorta and i ts branches. No evidence of aortic aneurysm. LYMPH NODES: No gross evidence for lymphadenopathy. SOFT TISSUE/ABDOMINAL WALL: Small fat-containing umbilical hernia. MUSCULOSKELETAL: Mild degenerative changes of the lower thoracic and upper lumbar spine. Moderate deg enerative changes from L4 through the sacrum with mild to moderate canal and neural foraminal stenose s. No acute bony abnormality. IMPRESSION: 1. No acute abnormality in the abdomen or pelvis. 2. Other chronic and likely incidental findings, as described above.
--- NOTE | 2023-10-26 14:46 | BD ---
EXAMINATION TYPE: Axial Bone Density DATE OF EXAM: 10/24/2023 CLINICAL HISTORY: 68 years old Female. ICD-10 CODE: R10.32 LEFT LOWER QUADRANT PAIN Height: 5 ft 2 in Weight: 159 FRAX RISK QUESTIONS: Alcohol (3 or more units per day): no Family History (Parent hip fracture): no Glucocorticoids (More than 3mos): no (Ex: prednisone, prednisolone, methylprednisolone, dexamethasone, and hydrocortisone). History of Fracture in Adulthood: no Secondary Osteoporosis: 1. Type 1 Diabetes: no 2. Hyperthyroidism: no 3. Menopause before 45: no 4. Malnutrition: no 5. Chronic liver disease: no Rheumatoid Arthritis: no Current Tobacco Use: no RISK FACTORS HISTORY OF: Surgery to Spine/Hip(right/left)/Wrist (right/left): no Family History of Osteoporosis: no Active: yes Diet low in dairy products/other sources of calcium: no Postmenopausal woman: yes Take estrogen and/or progesterone medications: no Lost more than 2 inches in height since high school: no Frequent falls: no Poor Health: good Hyperparathyroidism: no Adrenal Insufficiency: no MEDICATIONS: Additional Medications: zoloft ,cholesterol meds Additional History: EXAM MEASUREMENTS: Bone mineral densitometry was performed using the [employer] System. Bone mineral density as measured about the Lumbar spine is: ----- L1-L4(G/cm2): 1.492 T Score Values are as follows: ----- L1: 1.5 ----- L2: 1.1 ----- L3: 3.1 ----- L4: 3.9 ----- L1-L4: 2.6 Z Score Values are as follows: ----- L1: 2.9 ----- L2: 2.5 ----- L3: 4.5 ----- L4: 5.3 ----- L1-L4: 4.0 Bone mineral density has: decreased -0.3 % since study of: 2017 Bone mineral density about the R hip (g/cm2): 0.925 Bone mineral density about the L hip (g/cm2): 0.913 T Score values are as follows: -----R Neck: -0.8 -----L Neck: -0.9 -----R Total: -0.1 -----L Total: 0.1 Z Score values are as follows: -----R Neck: 0.6 -----L Neck: 0.5 -----R Total: 1.1 -----L Total:1.2 Bone mineral density has: decreased -2.9 % since study of: 2017 FRAX%s: The graph provided illustrates a 8.2 % chance for a major osteoporotic fx and a 0.7 % chance for the hips probability for fx in 10 years time. IMPRESSION: Normal (Values between +1 and -1 indicate normal bone mass). Consider repeating this study in 5 year s or sooner if there is some new clinical indication. NOTE: T-SCORE=SD OF THE YOUNG ADULT MEAN.
--- NOTE | 2023-10-26 15:34 | MM ---
Reason for Exam: Screening (asymptomatic). Last mammogram was performed 1 year(s) and 9 month(s) ago. Patient History: Menarche at age 12. First Full-Term at age 23. Postmenopausal. Risk Values: Raya 5 year model risk: 1.5%. NCI Lifetime model risk: 5.0%. Prior Study Comparison: 08/23/2015 Bilateral Screening Mammogram, [facility]. 09/03/2017 Bilateral Screening Mammogram, [facility]. 04/23/2019 Bilateral Screening Mammogram, [facility]. 09/22/2020 Bilateral Screening Mammogram, [facility]. 01/23/2022 Bilateral Screening Mammogram, [facility]. Tissue Density: There are scattered fibroglandular densities. Findings: Analyzed By CAD. The pattern is symmetrical and stable. No significant interval changes. No suspicious groups of microcalcifications, spiculated or lobular masses, architectural distortion or other secondary signs of malignancy are mammographically apparent. Overall Assessment: Benign, BI-RAD 2 Management: Screening Mammogram of both breasts in 1 year. A negative mammogram report should not preclude additional follow up of suspicious palpable abnormalities. Patient should continue monthly self breast exam. A clinical breast exam by your physician is recommended on an annual basis and results should be correlated with mammographic findings. Electronically signed and approved by: Demond Whiteside D.O. Radiologis
== END | disposition home or self-care (01) ==
LOC: RADMAMWWP 08:11
PROVIDERS: ATTEND Family Medicine
DX: Z12.31 Encounter for screening mammogram for malignant neoplasm of breast (principal); Z13.820 Encounter for screening for osteoporosis; R10.32 Left lower quadrant pain; Z78.0 Asymptomatic menopausal state
CPT/HCPCS: 74176; 77063; 77067; 77080

== ENCOUNTER → 2024-08-12 | Outpatient (CLI) | payer MEDICARE, BC ==
--- NOTE | 2024-08-12 10:52 | US ---
EXAMINATION TYPE: US pelvis complete transvag DATE OF EXAM: 08/12/2024 COMPARISON: 04/23/19, MRI: 05/14/19, CT: 10/24/23 CLINICAL INDICATION: Female, 68 years old with history of Z84.2 FAMILY HX OF MALIGNANT NEOPLASM OF OV ANITA; sister had ovarian cancer TECHNIQUE: . Transabdominal grayscale, color Doppler and spectral Doppler sonographic images of the pelvis were acquired. Transvaginal sonographic images were medically necessary to better assess the following anatomy: ovaries FINDINGS: Date of LMP: unknown EXAM MEASUREMENTS: Uterus: 6.4 x 4.8 x 2.7 cm Endometrial Stripe: 0.7 cm Right Ovary: 1.6 x 1.2 x 0.8 cm Left Ovary: not seen 1. Uterus: Anteverted wnl 2. Endometrium: wnl 3. Right Ovary: wnl 4. Left Ovary: not seen due to overlying bowel gas. 5. Bilateral Adnexa: wnl 6. Posterior cul-de-sac: wnl IMPRESSION: 1. No evidence for acute process. 2. No right ovarian masses visualized. 3. Nonvisualization left ovary due to overlying bowel gas. [facility], , 08/12/2024 10:50 AM
== END | disposition home or self-care (01) ==
LOC: RADUSWWP 08:51
PROVIDERS: ATTEND Family Medicine
CPT/HCPCS: 76830; 76856

== ENCOUNTER → 2024-08-19 | Outpatient (CLI) | payer MEDICARE, BC ==
--- NOTE | 2024-08-19 16:08 | CT ---
EXAMINATION TYPE: CT pelvis wo con DATE OF EXAM: 08/19/2024 3:57 PM COMPARISON: 10/24/2023 CLINICAL INDICATION: Female, 68 years old with history of Z84.2 FAM HX GEN DISEASE; looking for an ov melody TECHNIQUE: Axial CT pelvis wo con;Sagittal and coronal reformats were created on a separate workstat ion. Contrast used: mL of , (none if empty) Oral contrast used: without Oral Contrast (none if empty) CT DLP: 308.2 mGycm, Automated exposure control for dose reduction was used. FINDINGS: PELVIS BLADDER: No evidence for wall thickening or mass given limitations of exam. REPRODUCTIVE: The uterus is present. Ovaries are not well appreciated structure thought to represent the left upper ovary is present series 3 image 26 measuring 25 x 16 right ovary is not well appreciat ed due to adjacent small bowel. ABDOMEN & PELVIS STOMACH AND BOWEL: No evidence of bowel obstruction. PERITONEUM/RETROPERITONEUM: No evidence of pneumoperitoneum or free fluid. VASCULATURE: No evidence of aortic aneurysm. MUSCULOSKELETAL: No acute osseous abnormalities LYMPH NODES: No gross evidence for lymphadenopathy. SOFT TISSUE/ABDOMINAL WALL: Fat-containing umbilical hernia. IMPRESSION: 1. Small bowel limits evaluation for the ovaries. 2. Consider MRI with IV contrast for complete visualization. 3. Colonic diverticulosis. [facility], , 08/19/2024 4:05 PM
== END | disposition home or self-care (01) ==
LOC: RADCTMAIN 15:36
PROVIDERS: ATTEND Family Medicine
DX: K57.30 Diverticulosis of large intestine without perforation or abscess without bleeding (principal); Z84.2 Family history of other diseases of the genitourinary system
CPT/HCPCS: 72192

== ENCOUNTER → 2024-11-16 | Outpatient (CLI) | payer MEDICARE, BC ==
--- NOTE | 2024-11-16 15:25 | CT ---
EXAMINATION TYPE: CT brain wo con CT DLP: 1029.9 mGycm, Automated exposure control for dose reduction was used. DATE OF EXAM: 11/16/2024 3:17 PM COMPARISON: None. CLINICAL INDICATION:Female, 69 years old with history of R41.3 AMNESIA, memory loss TECHNIQUE: Brain: Multiple axial CT images of the brain were obtained without IV contrast. . Coronal and sagitta l reformats reviewed. FINDINGS: Brain: Extra-axial spaces: No abnormal extra-axial fluid collections. Ventricular system: Within normal limits Cerebral parenchyma: No acute intraparenchymal hemorrhage or mass effect. The grove-white junction is well differentiated. Scattered hypoattenuating areas are seen within the periventricular white matte r. Cerebellum: Unremarkable. Mass effect: No evidence of midline shift. Intracranial vasculature: Atherosclerotic calcifications of the intracranial vessels. Soft tissues: Normal. Calvarium/osseous structures: No depressed skull fracture. Paranasal sinuses and mastoid air cells: The mastoid air cells are clear. Mild mucosal thickening of the inferior bilateral maxillary sinuses and ethmoid sinuses with minimal mucosal thickening in the b ilateral sphenoid sinuses. The frontal sinuses are relatively clear. Visualized orbits: Orbital contents are intact. IMPRESSION: 1. No acute intracranial process. 2. Nonspecific white matter changes, likely secondary to chronic small vessel ischemic disease. [facility], , 11/16/2024 3:22 PM
== END | disposition home or self-care (01) ==
LOC: RADCTMAIN 14:56
PROVIDERS: ATTEND Family Medicine
DX: R41.3 Other amnesia (principal); R90.82 White matter disease, unspecified
CPT/HCPCS: 70450